=== PATIENT | male | born 1985 ===

== ENCOUNTER 2017-04-27 14:15 | Outpatient (CLI) | payer OTHER | END 2017-04-27 14:24 | disposition home or self-care (01) | LOC: RAD 14:15 | DX: S29.9XXA Unspecified injury of thorax, initial encounter (principal) ==

== ENCOUNTER → 2017-04-27 | Outpatient (CLI) | payer OTHER ==
[~2017-04-27] VITALS: Ht 152.4 cm; Wt 75.3 kg
[~2017-04-27] MED LIST: ADDERALL 10 MG10 MG PO
== END | disposition home or self-care (01) ==
LOC: PPHC 13:50
DX: R07.89 Other chest pain (principal); G89.11 Acute pain due to trauma

== ENCOUNTER 2017-12-26 11:03 | Outpatient (CLI) | payer OTHER | END 2017-12-26 11:13 | disposition home or self-care (01) | LOC: LAB 11:03 | DX: Z13.1 Encounter for screening for diabetes mellitus (principal); R03.0 Elevated blood-pressure reading, without diagnosis of hypertension; F41.1 Generalized anxiety disorder ==